=== PATIENT | female | born 1990 | race Two or more races ===

== ENCOUNTER 2018-10-13 03:21 | Emergency (ER) | payer MEDICAID, OTHER ==
[2018-10-13] MEDS ORDERED: AZITHROMYCIN 250 MG TAB PO ONE (04:27)
== END 2018-10-13 06:25 | disposition home or self-care (01) ==
DX: T76.21XA Adult sexual abuse, suspected, initial encounter (principal); F41.9 Anxiety disorder, unspecified; Z87.891 Personal history of nicotine dependence